=== PATIENT | female | born 1940 | race Caucasian/White ===

== ENCOUNTER 2020-12-26 11:44 | Emergency (ER) | payer OTHER ==
[~2020-12-26] VITALS: Ht 154.9 cm; Wt 52.2 kg
[2020-12-26 11:54] VITALS: BP 146/78
--- NOTE | 2020-12-26 13:00 | NUR ---
PATIENT LEFT WITHOUT BEING SEEN BY DR. PÉREZ. NO FURTHER CARE PROVIDED FOR PATIENT.
== END 2020-12-26 12:15 | disposition left against medical advice (07) ==
LOC: MED 11:44
DX: R11.2 Nausea with vomiting, unspecified (principal); Z53.21 Procedure and treatment not carried out due to patient leaving prior to being seen by health care provider